=== PATIENT | female | born 1945 | race Caucasian/White ===

== ENCOUNTER → 2018-02-01 | Outpatient (CLI) | payer OTHER ==
[~2018-02-01] MED LIST: ADULT LOW DOSE81 MG PO; ALBUTEROL INHAL17 GM INH; ALBUTEROL2.5 MG/31 INH; AMARYL2 MG PO; AMLODIPINE BESYL5 MG PO; ATENOLOL 100MG100 MG PO; CELEXA20 MG PO; CIPROFLOXACIN500 M1 PO; FLEXERIL PO; GENTAMICIN SU3 MG/ML OPHTHALMIC; GLUMETZA500; HYDROCHLOROTHIA25 M1 PO; HYDROCODONE-AP1 EAC6 PO; LIPITOR 20 MG T20 M1 PO; LISINOPRIL20 MG PO; LOPRESSOR100 M1 PO; MOISTURIZING LU15 ML OPHTHALMIC; PERCOCET 5-3251 EACH PO; POLYMYXIN B/TMP10 ML OP; PREDNISONE 20 M20 M1 PO; SIMVASTATIN80 MG PO; TOBREX5 ML OPHTHALMIC; ZOFRAN4 MG PO
== END ==
LOC: PET 06:27
DX: R91.1 Solitary pulmonary nodule (principal)